=== PATIENT | female | born 1975 | race Caucasian/White ===

== ENCOUNTER 2017-03-02 19:24 | Emergency (ER) | payer SELFPAY ==
[~2017-03-02] VITALS: Ht 152.4 cm; Wt 63.6 kg
[~2017-03-02 19:24] MED LIST: GABA-531 PO; INSU10VI3 SQ; METH4TAB PO; PERCT10 PO; PREG75 PO; SUMA6I SQ; TEMA15CA PO
[2017-03-02] MEDS ORDERED: PERCT PO (19:30)
[2017-03-02] MEDS ORDERED: AMIT25TA9 PO (19:30)
[2017-03-02] MEDS ORDERED: TEMA15CA PO (19:30)
[2017-03-02] MEDS ORDERED: HUM10VIA SQ ×3 (19:30)
[2017-03-02] MEDS ORDERED: GABA-529 PO (19:30)
[2017-03-02 19:45] LABS: BASOPHILS % (AUTO) 0.4 % (0.0-2.0); HEMOGLOBIN 13.8 g/dL (12.0-16.0); LYMPHOCYTES # (AUTO) 2.4 K/uL (1.0-4.8); LYMPHOCYTES % (AUTO) 30.5 % (22.0-44.0); MEAN CORPUSCULAR HEMOGLOBIN 31.4 pg (26.0-34.0); MEAN CORPUSCULAR HGB CONC 34.4 G/dL (31.0-37.0); MEAN CORPUSCULAR VOLUME 91 fL (80-100); MONOCYTES # (AUTO) 0.5 K/uL (0.1-1.0); MONOCYTES % (AUTO) 6.4 % (2.0-9.0); NEUTROPHILS # (AUTO) 4.9 K/uL (1.8-7.7); NEUTROPHILS % (AUTO) 61.7 % (40.0-70.0); PLATELET COUNT (AUTO) 325 K/uL (150-450); RED BLOOD CELL COUNT(AUTO) 4.38 MIL/uL (4.00-5.20); RED CELL DISTRIBUTION WIDTH 13.5 % (11.5-14.5)
[2017-03-02 19:55] LABS: ANION GAP 11 mmol/L (8-16); CALCIUM, TOTAL 9.3 mg/dL (8.8-10.5); CARBON DIOXIDE 25 mmol/L (22-29); CHLORIDE 103 mmol/L (98-107); CREATININE 0.73 mg/dL (0.60-1.30); GLOMERULAR FILTR. RATE CALC > 60 mL/min (>60); POTASSIUM 3.6 mmol/L (3.5-5.1); SODIUM SERUM 139 mmol/L (136-145); UREA NITROGEN, BLOOD 9 mg/dL (7-18)
[2017-03-02 20:10] LABS: ALANINE AMINOTRANSFERASE 25 U/L (12-78); ASPARTATE AMINOTRANSFERASE 20 U/L (15-37); BILIRUBIN,TOTAL 0.4 mg/dL (0.1-1.0); TOTAL PROTEIN, SERUM 7.8 g/dL (6.4-8.2)
[2017-03-02 21:09] VITALS: BP 121/71
== END 2017-03-02 21:55 | disposition home or self-care (01) ==
LOC: EMS 19:25
DX: F20.9 Schizophrenia, unspecified (principal); E11.65 Type 2 diabetes mellitus with hyperglycemia; F15.10 Other stimulant abuse, uncomplicated; M54.30 Sciatica, unspecified side; F10.129 Alcohol abuse with intoxication, unspecified; F12.10 Cannabis abuse, uncomplicated; F32.9 Major depressive disorder, single episode, unspecified; Z79.4 Long term (current) use of insulin
CPT/HCPCS: 36415; 80053; 80307; 82962; 84703; 85025; 99285; G0480

== ENCOUNTER 2017-05-30 11:14 | Inpatient (IN) | payer MEDICAID, OTHER ==
[~2017-05-30] VITALS: Ht 152.4 cm; Wt 68.3 kg
[~2017-05-30 11:14] MED LIST changes: +AMIT25TA9 PO; +GABA-529 PO; -GABA-531 PO; +HUM10VIA SQ; -INSU10VI3 SQ; -METH4TAB PO; +PERCT PO; -PERCT10 PO; -PREG75 PO; -SUMA6I SQ
[2017-05-30 11:28] LABS: GLUCOSE,POINT OF CARE 369 MG/DL (70-110)
[2017-05-30 11:52] LABS: EOSINOPHILS # (AUTO) 0.04 K/uL (0.00-0.70); EOSINOPHILS % (AUTO) 0.23 % (1.0-6.0); HEMATOCRIT 34.2 % (36-46); HEMOGLOBIN 11.5 g/dL (12.0-16.0); LYMPHOCYTES # (AUTO) 2.2 K/uL (1.0-4.8); LYMPHOCYTES % (AUTO) 12.5 % (22.0-44.0); MEAN CORPUSCULAR HEMOGLOBIN 30.6 pg (26.0-34.0); MEAN CORPUSCULAR HGB CONC 33.7 G/dL (31.0-37.0); MEAN CORPUSCULAR VOLUME 91 fL (80-100); MONOCYTES # (AUTO) 0.6 K/uL (0.1-1.0); MONOCYTES % (AUTO) 3.3 % (2.0-9.0); NEUTROPHILS # (AUTO) 14.7 K/uL (1.8-7.7); PLATELET COUNT (AUTO) 346 K/uL (150-450); RED BLOOD CELL COUNT(AUTO) 3.76 MIL/uL (4.00-5.20); RED CELL DISTRIBUTION WIDTH 12.7 % (11.5-14.5); WHITE BLOOD COUNT (AUTO) 17.5 K/uL (4.5-11.0)
[2017-05-30 12:08] LABS: ANION GAP 4 mmol/L (8-16); CALCIUM, TOTAL 8.8 mg/dL (8.8-10.5); CARBON DIOXIDE 31 mmol/L (22-29); CHLORIDE 97 mmol/L (98-107); GLOMERULAR FILTR. RATE CALC > 60 mL/min (>60); POTASSIUM 3.5 mmol/L (3.5-5.1); SODIUM SERUM 132 mmol/L (136-145); UREA NITROGEN, BLOOD 9 mg/dL (7-18)
[2017-05-30 12:13] LABS: ALANINE AMINOTRANSFERASE 14 U/L (12-78); ALBUMIN 2.6 g/dL (3.4-5.0); ASPARTATE AMINOTRANSFERASE 12 U/L (15-37); BILIRUBIN,TOTAL 0.2 mg/dL (0.1-1.0); TOTAL PROTEIN, SERUM 7.5 g/dL (6.4-8.2)
[2017-05-30 12:42] LABS: APPEARANCE,URINE CLOUDY (CLEAR); GLUCOSE, URINE (UA) >=1000 mg/dL (NEGATIVE); KETONES,URINE NEGATIVE (NEGATIVE); LEUKOCYTE ESTERASE ,URINE SMALL (NEGATIVE); OCCULT BLOOD,URINE LARGE (NEGATIVE); PH,URINE 6.5 (5.0-8.0); PROTEIN,URINE NEGATIVE (NEGATIVE)
[2017-05-30 12:52] LABS: RBC,URINE >100 /HPF (0-2)
[2017-05-30 12:54] LABS: SQUAMOUS EPITHELIAL CELL,UR Moderate /LPF (None Seen)
[2017-05-30] MEDS ORDERED: HYDROmorphone 2 MG/ML SYRINGE IVP ONE ×3 (13:00→16:00)
[2017-05-30] MEDS ORDERED: KETOROLAC TROMETHAMINE 30 MG/ML VIAL IVP ONE (13:00)
[2017-05-30] MEDS ORDERED: BARIUM SULFATE 0.1% SUSPENSION 450 ML BOTTLE PO ONE (13:00)
[2017-05-30] MEDS ORDERED: SODIUM CHLORIDE 0.9% 1,000 ML IV ONE (13:00)
[2017-05-30] MEDS ORDERED: ONDANSETRON HCL 4 MG/2 ML VIAL IVP ONE (13:00)
[2017-05-30] MEDS ORDERED: GABA-533 PO (13:01)
[2017-05-30] MEDS ORDERED: IOVERSOL 350 MG/ML 150 ML VIAL ONE (14:43)
[2017-05-30] MEDS ORDERED: PIPERACILLIN/TAZO 3.375 GM/D5W 50 ML IV ONE (16:15)
[2017-05-30] MEDS ORDERED: MetroNIDAZOLE 500 MG/NACL 100 ML IV ONE (16:15)
[2017-05-30] MEDS ORDERED: ACETAMINOPHEN 325 MG TABLET PO PRN (16:45)
[2017-05-30] MEDS ORDERED: ONDANSETRON HCL 4 MG/2 ML VIAL IVP PRN (16:45)
[2017-05-30] MEDS ORDERED: 0.9% SODIUM CHLORIDE 10 ML SYRINGE IVP PRN (16:45)
[2017-05-30 17:58] LABS: GLUCOSE,POINT OF CARE 244 MG/DL (70-110)
[2017-05-30 18:20] VITALS: BP 103/59
[2017-05-30] MEDS: SODIUM CHLORIDE 0.9% 1,000 ML IV SCH (18:34)
[2017-05-30] MEDS ORDERED: ZOLPIDEM TARTRATE 5 MG TABLET PO PRN (18:45)
[2017-05-30] MEDS ORDERED: MAGNESIUM HYDROXIDE SUSPENSION 30 ML UDCUP PO PRN (18:45)
[2017-05-30] MEDS ORDERED: HYDROCODONE/ACETAMINOPHEN 5-325 MG TABLET PO PRN (18:45)
[2017-05-30] MEDS ORDERED: BISACODYL 10 MG RECTAL RECTAL SUPPOSITORY PR PRN (18:45)
[2017-05-30] MEDS ORDERED: DEXTROSE 50%-WATER 25 GM/50 ML SYRINGE IVP PRN (19:00)
[2017-05-30] MEDS: DOCUSATE SODIUM 100 MG CAPSULE PO SCH (20:03)
[2017-05-30] MEDS: MORPHINE SULFATE 2 MG/ML SYRINGE IVP PRN (20:03)
[2017-05-30 20:14] VITALS: BP 97/68
[2017-05-30] MEDS: INSULIN ASPART 100 UNITS/ML SQ PRN (20:31)
[2017-05-30] MEDS: HEPARIN SODIUM,PORCINE 5,000 UNITS/ML VIAL SQ SCH (23:23)
[2017-05-30] MEDS: PIPERACILLIN/TAZO 3.375 GM/D5W 50 ML IV SCH (23:23)
[2017-05-30 23:58] VITALS: BP 116/69
[2017-05-31] MEDS: MORPHINE SULFATE 2 MG/ML SYRINGE IVP PRN ×2 (00:05→04:45)
[2017-05-31] MEDS: PIPERACILLIN/TAZO 3.375 GM/D5W 50 ML IV SCH ×4 (04:44→23:40)
[2017-05-31 05:57] VITALS: BP 91/42
[2017-05-31 06:09] LABS: GLUCOSE COMMENT 1 Received Meds; GLUCOSE,POINT OF CARE 194 MG/DL (70-110)
[2017-05-31 06:09] LABS: GLUCOSE COMMENT 1 Received Meds; GLUCOSE,POINT OF CARE 338 MG/DL (70-110)
[2017-05-31 06:41] LABS: ALANINE AMINOTRANSFERASE 17 U/L (12-78); ALBUMIN 2.2 g/dL (3.4-5.0); ANION GAP 7 mmol/L (8-16); ASPARTATE AMINOTRANSFERASE 14 U/L (15-37); BILIRUBIN,TOTAL 0.4 mg/dL (0.1-1.0); CALCIUM, TOTAL 7.7 mg/dL (8.8-10.5); CARBON DIOXIDE 28 mmol/L (22-29); CHLORIDE 100 mmol/L (98-107); CREATININE 0.59 mg/dL (0.60-1.30); GLOMERULAR FILTR. RATE CALC > 60 mL/min (>60); POTASSIUM 3.6 mmol/L (3.5-5.1); PROTHROMBIN TIME 10.3 SEC (9.4-11.6); SODIUM SERUM 135 mmol/L (136-145); TOTAL PROTEIN, SERUM 6.1 g/dL (6.4-8.2); UREA NITROGEN, BLOOD 6 mg/dL (7-18)
[2017-05-31 07:16] LABS: BASOPHILS # (AUTO) 0.11 K/uL (0.00-0.20); BASOPHILS % (AUTO) 0.8 % (0.0-2.0); EOSINOPHILS # (AUTO) 0.13 K/uL (0.00-0.70); EOSINOPHILS % (AUTO) 0.94 % (1.0-6.0); HEMOGLOBIN 9.7 g/dL (12.0-16.0); LYMPHOCYTES # (AUTO) 1.9 K/uL (1.0-4.8); LYMPHOCYTES % (AUTO) 13.7 % (22.0-44.0); MEAN CORPUSCULAR HEMOGLOBIN 30.3 pg (26.0-34.0); MEAN CORPUSCULAR HGB CONC 33.3 G/dL (31.0-37.0); MEAN CORPUSCULAR VOLUME 91 fL (80-100); MONOCYTES # (AUTO) 0.8 K/uL (0.1-1.0); MONOCYTES % (AUTO) 6.1 % (2.0-9.0); NEUTROPHILS # (AUTO) 10.7 K/uL (1.8-7.7); NEUTROPHILS % (AUTO) 78.4 % (40.0-70.0); PLATELET COUNT (AUTO) 328 K/uL (150-450); RED CELL DISTRIBUTION WIDTH 13.1 % (11.5-14.5); WHITE BLOOD COUNT (AUTO) 13.7 K/uL (4.5-11.0)
[2017-05-31] MEDS: HEPARIN SODIUM,PORCINE 5,000 UNITS/ML VIAL SQ SCH ×2 (08:00→14:57)
[2017-05-31] MEDS ORDERED: FentaNYL CITRATE-PF 100 MCG/2 ML VIAL ONE (09:52)
[2017-05-31] MEDS ORDERED: MIDAZOLAM HCL 2 MG/2 ML VIAL ONE (09:52)
[2017-05-31] MEDS ORDERED: LIDOCAINE HCL/PF 1% 30 ML VIAL ONE (09:54)
[2017-05-31] MEDS ORDERED: MIDAZOLAM HCL 2 MG/2 ML VIAL IVP ONE (10:25)
[2017-05-31] MEDS ORDERED: FentaNYL CITRATE-PF 100 MCG/2 ML VIAL IVP ONE (10:25)
[2017-05-31] MEDS: DOCUSATE SODIUM 100 MG CAPSULE PO SCH ×2 (12:34→21:15)
[2017-05-31] MEDS: TraMADol HCL 50 MG TABLET PO PRN ×2 (12:34→21:15)
[2017-05-31] MEDS: PANTOPRAZOLE SODIUM 40 MG DR TABLET PO SCH (12:35)
[2017-05-31] MEDS: SODIUM CHLORIDE 0.9% 1,000 ML IV SCH (12:36)
[2017-05-31] MEDS: INSULIN ASPART 100 UNITS/ML SQ PRN ×3 (12:43→21:19)
[2017-05-31 12:48] VITALS: BP 95/49
[2017-05-31 14:28] LABS: GLUCOSE,POINT OF CARE 146 MG/DL (70-110)
[2017-05-31] MEDS: FLUoxetine HCL 20 MG CAPSULE PO SCH (14:54)
[2017-05-31 15:19] VITALS: BP 102/45
[2017-05-31 19:33] LABS: PROTHROMBIN TIME 10.6 SEC (9.4-11.6)
[2017-05-31 20:23] VITALS: BP 101/62
[2017-06-01 00:09] VITALS: BP 98/52
[2017-06-01] MEDS: HEPARIN SODIUM,PORCINE 5,000 UNITS/ML VIAL SQ SCH ×3 (00:14→15:18)
[2017-06-01] MEDS: ACETAMINOPHEN 325 MG TABLET PO PRN ×2 (00:14→04:19)
[2017-06-01 03:57] LABS: GLUCOSE,POINT OF CARE 274 MG/DL (70-110)
[2017-06-01] MEDS: SODIUM CHLORIDE 0.9% 1,000 ML IV SCH ×3 (04:24→23:46)
[2017-06-01 04:46] VITALS: BP 102/46
[2017-06-01] MEDS: TraMADol HCL 50 MG TABLET PO PRN ×2 (05:37→15:18)
[2017-06-01] MEDS: PIPERACILLIN/TAZO 3.375 GM/D5W 50 ML IV SCH ×4 (05:38→23:46)
[2017-06-01 06:12] LABS: BASOPHILS % (AUTO) 0.2 % (0.0-2.0); EOSINOPHILS % (AUTO) 0.5 % (1.0-6.0); HEMATOCRIT 28.8 % (36-46); HEMOGLOBIN 9.7 g/dL (12.0-16.0); LYMPHOCYTES # (AUTO) 1.7 K/uL (1.0-4.8); LYMPHOCYTES % (AUTO) 16.2 % (22.0-44.0); MEAN CORPUSCULAR HEMOGLOBIN 30.8 pg (26.0-34.0); MEAN CORPUSCULAR HGB CONC 33.8 G/dL (31.0-37.0); MEAN CORPUSCULAR VOLUME 91 fL (80-100); MONOCYTES # (AUTO) 0.6 K/uL (0.1-1.0); MONOCYTES % (AUTO) 5.2 % (2.0-9.0); NEUTROPHILS # (AUTO) 8.3 K/uL (1.8-7.7); NEUTROPHILS % (AUTO) 77.9 % (40.0-70.0); PLATELET COUNT (AUTO) 316 K/uL (150-450); RED BLOOD CELL COUNT(AUTO) 3.17 MIL/uL (4.00-5.20); RED CELL DISTRIBUTION WIDTH 13.1 % (11.5-14.5); WHITE BLOOD COUNT (AUTO) 10.7 K/uL (4.5-11.0)
[2017-06-01 06:32] LABS: ALANINE AMINOTRANSFERASE 16 U/L (12-78); ALBUMIN 1.9 g/dL (3.4-5.0); ANION GAP 6 mmol/L (8-16); ASPARTATE AMINOTRANSFERASE 12 U/L (15-37); BILIRUBIN,TOTAL 0.3 mg/dL (0.1-1.0); CALCIUM, TOTAL 7.9 mg/dL (8.8-10.5); CARBON DIOXIDE 27 mmol/L (22-29); CHLORIDE 105 mmol/L (98-107); CREATININE 0.56 mg/dL (0.60-1.30); GLOMERULAR FILTR. RATE CALC > 60 mL/min (>60); POTASSIUM 3.6 mmol/L (3.5-5.1); SODIUM SERUM 138 mmol/L (136-145); TOTAL PROTEIN, SERUM 5.7 g/dL (6.4-8.2); UREA NITROGEN, BLOOD 2 mg/dL (7-18)
[2017-06-01] MEDS: INSULIN ASPART 100 UNITS/ML SQ PRN ×4 (06:45→20:34)
[2017-06-01 07:37] VITALS: BP 113/73
[2017-06-01] MEDS: FLUoxetine HCL 20 MG CAPSULE PO SCH (08:09)
[2017-06-01] MEDS: PANTOPRAZOLE SODIUM 40 MG DR TABLET PO SCH (08:09)
[2017-06-01] MEDS: DOCUSATE SODIUM 100 MG CAPSULE PO SCH ×2 (08:10→20:38)
[2017-06-01] MEDS ORDERED: SUMAtriptan SUCCINATE 25 MG TABLET PO PRN ×2 (10:30→21:00)
[2017-06-01] MEDS: ONDANSETRON HCL 4 MG/2 ML VIAL IVP PRN (11:28)
[2017-06-01 12:03] VITALS: BP 120/78
[2017-06-01 15:20] VITALS: BP 115/58
[2017-06-01 19:27] LABS: GLUCOSE,POINT OF CARE 252 MG/DL (70-110)
[2017-06-01 19:33] LABS: GLUCOSE,POINT OF CARE 204 MG/DL (70-110)
[2017-06-01 19:40] VITALS: BP 131/78
[2017-06-01 23:57] LABS: GLUCOSE COMMENT 1 Received Meds; GLUCOSE,POINT OF CARE 227 MG/DL (70-110)
[2017-06-02 00:09] VITALS: BP 126/72
[2017-06-02] MEDS: HEPARIN SODIUM,PORCINE 5,000 UNITS/ML VIAL SQ SCH ×3 (00:09→20:04)
[2017-06-02 02:58] LABS: GLUCOSE COMMENT 1 Received Meds; GLUCOSE,POINT OF CARE 312 MG/DL (70-110)
[2017-06-02 02:58] LABS: GLUCOSE COMMENT 1 Received Meds; GLUCOSE,POINT OF CARE 187 MG/DL (70-110)
[2017-06-02 04:24] VITALS: BP 112/50
[2017-06-02] MEDS: TraMADol HCL 50 MG TABLET PO PRN ×2 (04:55→16:01)
[2017-06-02] MEDS: PIPERACILLIN/TAZO 3.375 GM/D5W 50 ML IV SCH ×4 (04:56→23:06)
[2017-06-02] MEDS: INSULIN ASPART 100 UNITS/ML SQ PRN ×4 (06:22→20:09)
[2017-06-02 06:50] LABS: BASOPHILS # (AUTO) 0.05 K/uL (0.00-0.20); BASOPHILS % (AUTO) 0.5 % (0.0-2.0); EOSINOPHILS # (AUTO) 0.05 K/uL (0.00-0.70); EOSINOPHILS % (AUTO) 0.48 % (1.0-6.0); HEMATOCRIT 31.2 % (36-46); HEMOGLOBIN 10.4 g/dL (12.0-16.0); LYMPHOCYTES # (AUTO) 2.1 K/uL (1.0-4.8); LYMPHOCYTES % (AUTO) 20.2 % (22.0-44.0); MEAN CORPUSCULAR HEMOGLOBIN 30.6 pg (26.0-34.0); MEAN CORPUSCULAR HGB CONC 33.4 G/dL (31.0-37.0); MEAN CORPUSCULAR VOLUME 92 fL (80-100); MONOCYTES # (AUTO) 0.6 K/uL (0.1-1.0); MONOCYTES % (AUTO) 5.5 % (2.0-9.0); NEUTROPHILS # (AUTO) 7.6 K/uL (1.8-7.7); NEUTROPHILS % (AUTO) 73.3 % (40.0-70.0); PLATELET COUNT (AUTO) 386 K/uL (150-450); RED CELL DISTRIBUTION WIDTH 13.4 % (11.5-14.5); WHITE BLOOD COUNT (AUTO) 10.4 K/uL (4.5-11.0)
[2017-06-02 06:52] LABS: GLUCOSE COMMENT 1 Received Meds; GLUCOSE,POINT OF CARE 212 MG/DL (70-110)
[2017-06-02 07:03] VITALS: BP 119/60
[2017-06-02] MEDS ORDERED: IOHEXOL 240 MG/ML 50 ML VIAL ONE (08:13)
[2017-06-02] MEDS ORDERED: NALOXONE HCL 0.4 MG/ML VIAL ONE (08:17)
[2017-06-02] MEDS ORDERED: MIDAZOLAM HCL 2 MG/2 ML VIAL ONE (08:17)
[2017-06-02] MEDS ORDERED: FentaNYL CITRATE-PF 100 MCG/2 ML VIAL ONE (08:17)
[2017-06-02] MEDS ORDERED: LIDOCAINE HCL/PF 1% 30 ML VIAL ONE (08:18)
[2017-06-02] MEDS ORDERED: FLUMAZENIL 0.1 MG/ML 5 ML VIAL IVP ONE (08:18)
[2017-06-02] MEDS: PANTOPRAZOLE SODIUM 40 MG DR TABLET PO SCH (10:01)
[2017-06-02] MEDS: FLUoxetine HCL 20 MG CAPSULE PO SCH (10:01)
[2017-06-02] MEDS: DOCUSATE SODIUM 100 MG CAPSULE PO SCH ×2 (10:01→20:04)
[2017-06-02] MEDS ORDERED: IOVERSOL 350 MG/ML 100 ML VIAL ONE (10:54)
[2017-06-02 11:23] VITALS: BP 106/48
[2017-06-02 15:31] VITALS: BP 125/64
[2017-06-02 19:02] LABS: GLUCOSE COMMENT 1 Received Meds; GLUCOSE,POINT OF CARE 296 MG/DL (70-110)
[2017-06-02 19:02] LABS: GLUCOSE COMMENT 1 Received Meds; GLUCOSE,POINT OF CARE 163 MG/DL (70-110)
[2017-06-02 19:54] VITALS: BP 120/71
[2017-06-03 00:02] VITALS: BP 113/59
[2017-06-03 00:06] VITALS: BP 106/59
[2017-06-03 05:03] VITALS: BP 115/71
[2017-06-03] MEDS: PIPERACILLIN/TAZO 3.375 GM/D5W 50 ML IV SCH (05:36)
[2017-06-03] MEDS: INSULIN ASPART 100 UNITS/ML SQ PRN (06:15)
[2017-06-03 07:00] LABS: BASOPHILS % (AUTO) 0.2 % (0.0-2.0); EOSINOPHILS % (AUTO) 0.6 % (1.0-6.0); HEMATOCRIT 34.7 % (36-46); HEMOGLOBIN 11.7 g/dL (12.0-16.0); LYMPHOCYTES # (AUTO) 2.4 K/uL (1.0-4.8); MEAN CORPUSCULAR HEMOGLOBIN 30.4 pg (26.0-34.0); MEAN CORPUSCULAR HGB CONC 33.6 G/dL (31.0-37.0); MEAN CORPUSCULAR VOLUME 90 fL (80-100); MONOCYTES # (AUTO) 0.5 K/uL (0.1-1.0); MONOCYTES % (AUTO) 4.7 % (2.0-9.0); NEUTROPHILS % (AUTO) 72.5 % (40.0-70.0); PLATELET COUNT (AUTO) 453 K/uL (150-450); RED BLOOD CELL COUNT(AUTO) 3.84 MIL/uL (4.00-5.20); RED CELL DISTRIBUTION WIDTH 13.2 % (11.5-14.5)
[2017-06-03 07:12] LABS: ANION GAP 9 mmol/L (8-16); CALCIUM, TOTAL 8.9 mg/dL (8.8-10.5); CARBON DIOXIDE 28 mmol/L (22-29); CHLORIDE 99 mmol/L (98-107); CREATININE 0.65 mg/dL (0.60-1.30); GLOMERULAR FILTR. RATE CALC > 60 mL/min (>60); POTASSIUM 3.8 mmol/L (3.5-5.1); SODIUM SERUM 136 mmol/L (136-145); UREA NITROGEN, BLOOD 5 mg/dL (7-18)
[2017-06-03 07:52] VITALS: BP 106/69
[2017-06-03] MEDS: PANTOPRAZOLE SODIUM 40 MG DR TABLET PO SCH (08:07)
[2017-06-03] MEDS: FLUoxetine HCL 20 MG CAPSULE PO SCH (08:07)
[2017-06-03] MEDS: ONDANSETRON HCL 4 MG/2 ML VIAL IVP PRN (08:07)
[2017-06-03] MEDS: DOCUSATE SODIUM 100 MG CAPSULE PO SCH (08:07)
[2017-06-03] MEDS: HEPARIN SODIUM,PORCINE 5,000 UNITS/ML VIAL SQ SCH (08:08)
[2017-06-04 14:23] LABS: GLUCOSE COMMENT 1 Received Meds; GLUCOSE,POINT OF CARE 274 MG/DL (70-110)
[2017-06-04] MEDS ORDERED: TEMA15CA PO (17:20)
[2017-06-04] MEDS ORDERED: INS7030 SQ ×3 (17:20)
[2017-06-04] MEDS ORDERED: GABA-533 PO (17:20)
[2017-06-04] MEDS ORDERED: AMIT25TA9 PO (17:20)
== END 2017-06-03 10:25 | disposition home or self-care (01) | DRG 720 ==
LOC: EMS 11:15 → 5S 17:36
PROVIDERS: ADMIT Internal Medicine; ATTEND Internal Medicine
PROC: 0W9J30Z Drainage of Pelvic Cavity with Drainage Device, Percutaneous Approach (ICD-10-PCS; principal; 2017-05-31)
DX: A41.9 Sepsis, unspecified organism (principal); F33.2 Major depressive disorder, recurrent severe without psychotic features; K63.0 Abscess of intestine; E87.1 Hypo-osmolality and hyponatremia; F20.9 Schizophrenia, unspecified; E10.9 Type 1 diabetes mellitus without complications; Z88.8 Allergy status to other drugs, medicaments and biological substances; F34.1 Dysthymic disorder; G43.909 Migraine, unspecified, not intractable, without status migrainosus; K52.9 Noninfective gastroenteritis and colitis, unspecified; K59.09 Other constipation; Z79.4 Long term (current) use of insulin; Z79.899 Other long term (current) drug therapy
CPT/HCPCS: 74177; 75989; 76000; 82962; 83605; 87040; 87070; 87086; 87205; 88108; 96365; 96375; 96376; 99285; G0480; J1170; J1644; J1885; J2250; J2270; J2310; J2405; J2543; J3010; J3490; J7030; Q9966

== ENCOUNTER 2017-06-04 17:09 | Emergency (ER) | payer OTHER ==
[~2017-06-04] VITALS: Ht 152.4 cm; Wt 61.4 kg
[2017-06-04] MEDS ORDERED: GABA-533 PO (17:20)
[2017-06-04] MEDS ORDERED: INS7030 SQ ×3 (17:20)
[2017-06-04] MEDS ORDERED: TEMA15CA PO (17:20)
[2017-06-04] MEDS ORDERED: AMIT25TA9 PO (17:20)
[2017-06-04 17:22] LABS: GLUCOSE,POINT OF CARE 448 MG/DL (70-110)
[2017-06-04 17:30] VITALS: BP 134/90
== END 2017-06-04 18:10 | disposition home or self-care (01) ==
LOC: EMS 17:11
DX: Z43.3 Encounter for attention to colostomy (principal); Z09 Encounter for follow-up examination after completed treatment for conditions other than malignant neoplasm; E11.9 Type 2 diabetes mellitus without complications; Z79.4 Long term (current) use of insulin; Z88.8 Allergy status to other drugs, medicaments and biological substances
CPT/HCPCS: 82962; 99282

== ENCOUNTER 2017-06-05 11:43 | Emergency (ER) | payer OTHER ==
[~2017-06-05] VITALS: Ht 160 cm; Wt 70.0 kg
[~2017-06-05 11:43] MED LIST changes: -GABA-529 PO; +GABA-533 PO; -HUM10VIA SQ; +INS7030 SQ; -PERCT PO
[2017-06-05 12:03] LABS: GLUCOSE,POINT OF CARE 360 MG/DL (70-110)
[2017-06-05 12:26] VITALS: BP 112/61
== END 2017-06-05 13:05 | disposition home or self-care (01) ==
LOC: EMS 11:46
DX: G89.18 Other acute postprocedural pain (principal); I10 Essential (primary) hypertension; E11.9 Type 2 diabetes mellitus without complications; F20.9 Schizophrenia, unspecified; F32.9 Major depressive disorder, single episode, unspecified; Z98.890 Other specified postprocedural states; Z79.4 Long term (current) use of insulin
CPT/HCPCS: 82962; 99282

== ENCOUNTER 2017-12-10 16:12 | Emergency (ER) | payer OTHER | END 2017-12-10 16:40 | disposition left against medical advice (07) | LOC: EMS 16:15 | DX: M25.569 Pain in unspecified knee (principal); Z53.21 Procedure and treatment not carried out due to patient leaving prior to being seen by health care provider ==

== ENCOUNTER 2018-02-27 13:32 | Emergency (ER) | payer OTHER ==
[~2018-02-27] VITALS: Ht 152.4 cm; Wt 68.2 kg
[2018-02-27 14:13] LABS: GLUCOSE,POINT OF CARE 320 MG/DL (70-110)
[2018-02-27] MEDS ORDERED: DEXAMETHASONE SOD PHOS 4 MG/ML 5 ML VIAL IM ONE (15:45)
[2018-02-27 16:50] VITALS: BP 110/68
== END 2018-02-27 17:01 | disposition home or self-care (01) ==
LOC: EMS 13:34
DX: L20.9 Atopic dermatitis, unspecified (principal); L50.9 Urticaria, unspecified; I10 Essential (primary) hypertension; E11.9 Type 2 diabetes mellitus without complications; F17.210 Nicotine dependence, cigarettes, uncomplicated; Z79.4 Long term (current) use of insulin; Z88.8 Allergy status to other drugs, medicaments and biological substances
CPT/HCPCS: 82962; 96372; 99283; J1100

== ENCOUNTER 2021-03-30 16:55 | Emergency (ER) | payer OTHER ==
[~2021-03-30] VITALS: Ht 165.1 cm; Wt 54.5 kg
[~2021-03-30 16:55] MED LIST changes: +AMIT25TA10 PO; -AMIT25TA9 PO; +GABA-1201 PO; -GABA-533 PO; -TEMA15CA PO
[2021-03-30 17:00] VITALS: BP 117/74
== END 2021-03-30 17:29 | disposition left against medical advice (07) ==
LOC: EMS 16:58
DX: H57.12 Ocular pain, left eye (principal); Z53.21 Procedure and treatment not carried out due to patient leaving prior to being seen by health care provider

== ENCOUNTER 2021-03-30 21:45 | Emergency (ER) | payer OTHER ==
[~2021-03-30] VITALS: Ht 152.4 cm; Wt 45.5 kg
[2021-03-31] MEDS ORDERED: FLUORESCEIN SODIUM 1 MG STRIP OS ONE (01:45)
[2021-03-31] MEDS ORDERED: PROPARACAINE HCL 0.5% 15 ML OPHTHALMIC SOLUTION OS ONE (01:45)
[2021-03-31 02:40] VITALS: BP 129/85
== END 2021-03-31 03:08 | disposition home or self-care (01) ==
LOC: EMS 21:46
DX: S05.02XA Injury of conjunctiva and corneal abrasion without foreign body, left eye, initial encounter (principal); H10.9 Unspecified conjunctivitis; E11.9 Type 2 diabetes mellitus without complications; I10 Essential (primary) hypertension; F32.9 Major depressive disorder, single episode, unspecified; F20.9 Schizophrenia, unspecified; Z87.891 Personal history of nicotine dependence; Z79.4 Long term (current) use of insulin; Z88.8 Allergy status to other drugs, medicaments and biological substances; X58.XXXA Exposure to other specified factors, initial encounter; Y93.89 Activity, other specified; Y92.89 Other specified places as the place of occurrence of the external cause; Y99.8 Other external cause status
CPT/HCPCS: 82962; 99283

== ENCOUNTER 2023-11-12 17:01 | Emergency (ER) | payer MEDICAID, OTHER ==
[~2023-11-12] VITALS: Ht 152.4 cm; Wt 49.1 kg
[2023-11-12] MEDS ORDERED: INSU100I75 SQ (17:40)
[2023-11-12] MEDS ORDERED: SENN-277 PO (17:40)
[2023-11-12] MEDS ORDERED: DOCU100C33 PO (17:40)
[2023-11-12] MEDS ORDERED: PANT40TA54 PO (17:40)
[2023-11-12] MEDS ORDERED: METO10TA3 PO (17:40)
[2023-11-12] MEDS: MAG HYDROX/ALUMINUM HYD/SIMETH 30 ML SUSPENSION UDCUP PO ONE (17:50)
[2023-11-12] MEDS: SODIUM CHLORIDE 0.9% 1,000 ML IV ONE (17:50)
[2023-11-12] MEDS: MORPHINE SULFATE 2 MG/ML SYRINGE IVP ONE (17:51)
[2023-11-12] MEDS: FAMOTIDINE 20 MG/2 ML VIAL IVP ONE (17:51)
[2023-11-12 18:19] LABS: BASOPHILS % (AUTO) 0.5 % (0.0-2.0); EOSINOPHILS % (AUTO) 0.4 % (1.0-6.0); HEMATOCRIT 36.8 % (36-46); HEMOGLOBIN 12.7 g/dL (12.0-16.0); LYMPHOCYTES # (AUTO) 2.1 K/uL (1.0-4.8); MEAN CORPUSCULAR HGB CONC 34.6 G/dL (31.0-37.0); MEAN CORPUSCULAR VOLUME 90 fL (80-100); MONOCYTES # (AUTO) 0.6 K/uL (0.1-1.0); MONOCYTES % (AUTO) 7.3 % (2.0-9.0); NEUTROPHILS # (AUTO) 5.1 K/uL (1.8-7.7); NEUTROPHILS % (AUTO) 64.8 % (40.0-70.0); PLATELET COUNT (AUTO) 351 K/uL (150-450); RED CELL DISTRIBUTION WIDTH 13.4 % (11.5-14.5); WHITE BLOOD COUNT (AUTO) 7.9 K/uL (4.5-11.0)
[2023-11-12 18:28] LABS: ANION GAP 10 mmol/L (8-16); CALCIUM, TOTAL 9.5 mg/dL (8.8-10.5); CARBON DIOXIDE 31 mmol/L (22-29); CHLORIDE 93 mmol/L (98-107); CREATININE 1.93 mg/dL (0.60-1.30); GLOMERULAR FILTR. RATE CALC 28 mL/min (>60); GLUCOSE,RANDOM 254 mg/dL (70-110); POTASSIUM 3.7 mmol/L (3.5-5.1); SODIUM SERUM 134 mmol/L (136-145); UREA NITROGEN, BLOOD 23 mg/dL (7-18)
[2023-11-12 18:34] LABS: ALANINE AMINOTRANSFERASE 126 U/L (12-78); ALKALINE PHOSPHATASE 119 U/L (46-116); ASPARTATE AMINOTRANSFERASE 19 U/L (15-37); BILIRUBIN,TOTAL 0.4 mg/dL (0.1-1.0); LIPASE 18 U/L (16-77); TOTAL PROTEIN, SERUM 8.5 g/dL (6.4-8.2)
[2023-11-12 19:01] LABS: TROPONIN I-HIGH SENSITIVITY 21 ng/L (<51)
[2023-11-12 19:09] LABS: ALCOHOL, BLOOD (SERUM) < 3 mg/dL (0-10)
[2023-11-12 19:15] VITALS: TEMP 98.8
[2023-11-12] MEDS ORDERED: ONDA-104 PO (19:25)
[2023-11-12] MEDS ORDERED: DOCU-385 PO (19:25)
[2023-11-12] MEDS ORDERED: OMEP20 PO (19:25)
[2023-11-12 21:50] VITALS: BP 138/71; PULSE 90; RESP 16
== END 2023-11-12 22:11 | disposition home or self-care (01) ==
LOC: EMS 17:11
DX: K59.00 Constipation, unspecified (principal); R11.2 Nausea with vomiting, unspecified; R10.9 Unspecified abdominal pain; F32.A Depression, unspecified; E11.9 Type 2 diabetes mellitus without complications; I10 Essential (primary) hypertension; F20.9 Schizophrenia, unspecified; Z87.891 Personal history of nicotine dependence; Z98.890 Other specified postprocedural states
CPT/HCPCS: 99285; 96374; 71045; 96361; 96375; 80053; 83690; 83880; 84484; 84703; 85025; 93005; G0480; J3490; J2270; J7030; 36415-L1; 36415-TC

== ENCOUNTER 2023-11-25 12:59 | Emergency (ER) | payer MEDICAID ==
[~2023-11-25] VITALS: Ht 162.6 cm; Wt 45.5 kg
[~2023-11-25 12:59] MED LIST changes: -AMIT25TA10 PO; +DOCU-385 PO; +DOCU100C33 PO; -GABA-1201 PO; -INS7030 SQ; +INSU100I75 SQ; +METO10TA3 PO; +OMEP20 PO; +ONDA-104 PO; +PANT40TA54 PO; +SENN-277 PO
[2023-11-25 13:07] VITALS: BP 96/71; PULSE 98; RESP 18; TEMP 98
[2023-11-25] MEDS ORDERED: DULO20CA71 PO (13:09)
[2023-11-25] MEDS ORDERED: INSU100V36 SQ (13:09)
[2023-11-25] MEDS ORDERED: GABA-1201 PO (13:09)
[2023-11-25] MEDS ORDERED: AMIT25TA10 PO (13:09)
[2023-11-25] MEDS ORDERED: SUMA1TAB12 PO (13:09)
[2023-11-25 13:46] LABS: BASOPHILS % (AUTO) 0.4 % (0.0-2.0); EOSINOPHILS % (AUTO) 1.2 % (1.0-6.0); HEMATOCRIT 30.6 % (36-46); HEMOGLOBIN 10.4 g/dL (12.0-16.0); LYMPHOCYTES # (AUTO) 2.1 K/uL (1.0-4.8); LYMPHOCYTES % (AUTO) 21.4 % (22.0-44.0); MEAN CORPUSCULAR HEMOGLOBIN 31.2 pg (26.0-34.0); MEAN CORPUSCULAR VOLUME 92 fL (80-100); MONOCYTES # (AUTO) 0.7 K/uL (0.1-1.0); MONOCYTES % (AUTO) 7.6 % (2.0-9.0); NEUTROPHILS # (AUTO) 6.7 K/uL (1.8-7.7); NEUTROPHILS % (AUTO) 69.4 % (40.0-70.0); PLATELET COUNT (AUTO) 318 K/uL (150-450); RED BLOOD CELL COUNT(AUTO) 3.33 MIL/uL (4.00-5.20); RED CELL DISTRIBUTION WIDTH 14.4 % (11.5-14.5); WHITE BLOOD COUNT (AUTO) 9.6 K/uL (4.5-11.0)
[2023-11-25 13:54] LABS: ANION GAP 7 mmol/L (8-16); CALCIUM, TOTAL 9.6 mg/dL (8.8-10.5); CARBON DIOXIDE 30 mmol/L (22-29); CHLORIDE 105 mmol/L (98-107); CREATININE 0.58 mg/dL (0.60-1.30); GLOMERULAR FILTR. RATE CALC > 60 mL/min (>60); GLUCOSE,RANDOM 162 mg/dL (70-110); POTASSIUM 4.2 mmol/L (3.5-5.1); SODIUM SERUM 142 mmol/L (136-145); UREA NITROGEN, BLOOD 11 mg/dL (7-18)
[2023-11-25 13:57] LABS: ALCOHOL, BLOOD (SERUM) < 3 mg/dL (0-10)
[2023-11-25 13:59] LABS: ALANINE AMINOTRANSFERASE 41 U/L (12-78); ALBUMIN 3.1 g/dL (3.4-5.0); ALKALINE PHOSPHATASE 92 U/L (46-116); ASPARTATE AMINOTRANSFERASE 18 U/L (15-37); BILIRUBIN,TOTAL 0.3 mg/dL (0.1-1.0); CREATINE KINASE, TOTAL ONLY 57 U/L (26-192); TOTAL PROTEIN, SERUM 7.5 g/dL (6.4-8.2)
[2023-11-25 14:02] LABS: TROPONIN I-HIGH SENSITIVITY 20 ng/L (<51)
[2023-11-25] MEDS: LORazepam 1 MG TABLET PO ONE (14:33)
[2023-11-25 14:49] LABS: ALCOHOL, URINE DRUG SCREEN NEGATIVE (NEGATIVE); AMPHET/METH SCREEN,URINE NEGATIVE (NEGATIVE); BARBITURATE SCREEN, URINE NEGATIVE (NEGATIVE); BENZODIAZEPINES SCREEN,URINE POSITIVE (NEGATIVE); CANNABINOID SCREEN,URINE POSITIVE (NEGATIVE); COCAINE SCREEN,URINE NEGATIVE (NEGATIVE); METHADONE SCREEN, URINE NEGATIVE (NEGATIVE); OPIATE SCREEN,URINE NEGATIVE (NEGATIVE); PHENCYCLIDINE SCREEN,URINE NEGATIVE (NEGATIVE)
== END 2023-11-25 19:26 | disposition home or self-care (01) ==
LOC: EMS 13:03
DX: F32.9 Major depressive disorder, single episode, unspecified (principal); F41.9 Anxiety disorder, unspecified; E11.9 Type 2 diabetes mellitus without complications; I10 Essential (primary) hypertension; F20.9 Schizophrenia, unspecified; Z87.891 Personal history of nicotine dependence; Z98.890 Other specified postprocedural states; Z88.8 Allergy status to other drugs, medicaments and biological substances
CPT/HCPCS: 99284; 80053; 82550; 82962; 84484; 84703; 85025; 36415; 93005; 80307; G0480